=== PATIENT | male | born 1985 | race Caucasian/White ===

== ENCOUNTER 2018-11-26 08:36 | Emergency (ER) | payer BC, MEDICAID, OTHER ==
[~2018-11-26] VITALS: Ht 167.6 cm; Wt 86.2 kg
[2018-11-26] MEDS ORDERED: HYDROcodone-ACET 5/325MG TAB PO ONE (10:00)
[2018-11-26] MEDS ORDERED: ONDANSETRON ODT 4 MG TAB PO ONE (10:00)
[2018-11-26 13:38] VITALS: BP 138/86
== END 2018-11-26 13:36 | disposition home or self-care (01) ==
LOC: ER 08:38
DX: S09.90XA Unspecified injury of head, initial encounter (principal); V48.5XXA Car driver injured in noncollision transport accident in traffic accident, initial encounter; Y93.89 Activity, other specified; Y99.8 Other external cause status; Y92.89 Other specified places as the place of occurrence of the external cause
CPT/HCPCS: 70450; 99284; Q0162